=== PATIENT | female | born 1985 | race Caucasian/White ===

== ENCOUNTER 2021-06-06 10:39 | Emergency (ER) | payer SELFPAY ==
[2021-06-06 10:44] VITALS: BP 159/96; PULSE 75; RESP 18; TEMP 36.8; O2SAT 98; BMI 26.5
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
[2021-06-06 13:40] VITALS: BP 141/82; PULSE 78; RESP 18; TEMP 36.8; O2SAT 99
[2021-06-06 13:53] LABS: Chloride 107 mmol/L (98-107); Potassium 3.9 mmoL/L (3.5-5.1); Sodium 132 mmol/L (136-145)
[2021-06-06 13:56] LABS: Alanine Aminotransferase 12 U/L (12-78); Albumin Level 3.9 g/dl (3.5-5.0); Albumin/Globulin Ratio 1.3 (1.1-1.8); Alkaline Phosphatase 74 U/L (38-126); Anion Gap 5.9 mEq/L (5-15); Aspartate Amino Transferase 41 U/L (14-36); Bilirubin,Total 0.4 mg/dl (0.2-1.3); Blood Urea Nitrogen 4 mg/dl (7-17); Calcium 8.2 mg/dl (8.4-10.2); Carbon Dioxide 23 mmol/L (22.0-30.0); Creatinine Clearance Estimated 167 mL/min (50-200); Estimated Glomerular Filt Rate 140 ml/min (>60); GFR (African American) 169 ML/MIN (>60); Globulin 3.1 g/dL (1.3-3.2); Glucose 107 mg/dl (74-100); Lipase 75 U/L (23-300)
[2021-06-06 13:59] LABS: Basophils % 0.4 % (0.1-2.0); Eosinophils % 0.3 % (0.1-12.0); Hematocrit 38.7 % (37.0-47.0); Lymphocytes # 0.5 K/mm3 (0.7-4.5); Lymphocytes % 6.7 % (10-50); Mean Corpuscular HGB Conc 33.5 g/dL (31.8-35.4); Mean Corpuscular Hemoglobin 30.7 pg (27.0-31.2); Mean Corpuscular Volume 91.5 fl (81-99); Mean Platelet Volume 9.4 fl (7.4-10.4); Monocytes # 0.6 K/mm3 (0.1-1.0); Monocytes % 7.9 % (1.7-9.3); Neutrophils # 6.4 K/mm3 (1.8-7.8); Neutrophils % 84.7 % (37.0-80.0); Platelet Count 224 K/mm3 (142-424); Red Blood Count 4.23 M/mm3 (4.20-5.40); Red Cell Distribution Width 12.8 % (11.5-17.5); White Blood Count 7.6 K/mm3 (4.8-10.8)
== END 2021-06-06 13:42 | disposition critical access hospital (66) ==
PROVIDERS: Emergency Provider Emergency Medicine
DX: S22.081A Stable burst fracture of T11-T12 vertebra, initial encounter for closed fracture (principal); V47.0XXA Car driver injured in collision with fixed or stationary object in nontraffic accident, initial encounter; Y92.488 Other paved roadways as the place of occurrence of the external cause
CPT/HCPCS: 71045; 72125; 72128; 72131; 80053; 83690; 85025; 99283

== ENCOUNTER 2023-11-04 21:58 | Emergency (ER) | payer MEDICAID, SELFPAY ==
[2023-11-04 21:59] VITALS: BP 139/104; PULSE 114; RESP 20; TEMP 36.7; O2SAT 98; BMI 25.6
--- NOTE | 2023-11-04 22:30 | CT_ITS ---
PROCEDURE INFORMATION: Exam: CT Abdomen And Pelvis With Contrast Exam date and time: 11/04/2023 11:36 PM Age: 38 years old Clinical indication: Abdominal pain; Additional info: Left sided abdominal pain, hematochezia TECHNIQUE: Imaging protocol: Computed tomography of the abdomen and pelvis with contrast. Total images: 282 Radiation optimization: All CT scans at this facility use at least one of these dose optimization techniques: automated exposure control; mA and/or kV adjustment per patient size (includes targeted exams where dose is matched to clinical indication); or iterative reconstruction. Contrast material: ISOVUE; Contrast volume: 75 ml; Contrast route: IV; COMPARISON: CT LUMBAR SPINE WO CON 06/06/2021 11:09 AM FINDINGS: Lungs: Lung bases are clear. Heart: Normal heart size. Diaphragm: Tiny hiatal hernia. Liver: Dome of the liver has been excluded from field of view. Liver is otherwise unremarkable. Gallbladder and bile ducts: Normal. No calcified stones. No ductal dilation. Pancreas: Normal. No ductal dilation. Spleen: Normal. No splenomegaly. Adrenal glands: Normal. No mass. Kidneys and ureters: No hydronephrosis, nephrolithiasis, or renal mass. Stomach and bowel: Unremarkable stomach and duodenum. No ileus or bowel obstruction. Small bowel appears within normal limits. Unremarkable colon. Collapsed rectosigmoid colon. Appendix: Nonvisualized appendix. Suspect prior appendectomy with right lower quadrant surgical clips. Intraperitoneal space: Unremarkable. No free air. No significant fluid collection. Vasculature: Abdominal aorta is normal in caliber. Major abdominal vessels enhance appropriately. Pelvic phleboliths. Lymph nodes: Unremarkable. No enlarged lymph nodes. Urinary bladder: Unremarkable as visualized. Reproductive: Physiologic uterus and ovaries. No adnexal mass. Cervical nabothian cyst. Bones/joints: Remote severe compression deformity T12 vertebral body with component of retropulsion and acquired spinal canal stenosis. Minor broad-based thoracolumbar levocurvature is likely positional. No acute osseous abnormality. Soft tissues: Diastasis of the rectus fascia the umbilicus. IMPRESSION: 1. No acute intra-abdominal or pelvic process. 2. Multiple chronic and incidental findings.
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
[2023-11-04] MEDS: LACTATED RINGERS 1000ML 1,000 ML 999 ML IV (22:36)
[2023-11-04] MEDS: MORPHINE 4MG/ML SYRINGE 4 MG IV (22:37)
[2023-11-04] MEDS: ONDANSETRON 4MG/2ML VIAL 4 MG IV (22:37)
[2023-11-04 23:23] LABS: Chloride 103 mmol/L (98-107); Sodium 139 mmol/L (136-145)
[2023-11-04 23:24] LABS: Basophils # 0.1 K/mm3 (0-0.2); Basophils % 0.8 % (0.1-2.0); Eosinophils # 0.1 K/mm3 (0.0-0.4); Eosinophils % 1.5 % (0.1-12.0); Hematocrit 45.8 % (37.0-47.0); Hemoglobin 15.2 g/dL (12.2-16.2); Lymphocytes # 2.1 K/mm3 (0.7-4.5); Lymphocytes % 21.6 % (10-50); Mean Corpuscular HGB Conc 33.2 g/dL (31.8-35.4); Mean Corpuscular Hemoglobin 30.1 pg (27.0-31.2); Mean Corpuscular Volume 90.5 fl (81-99); Mean Platelet Volume 8.4 fl (7.4-10.4); Monocytes # 0.5 K/mm3 (0.1-1.0); Monocytes % 4.8 % (1.7-9.3); Neutrophils # 6.8 K/mm3 (1.8-7.8); Neutrophils % 71.3 % (37.0-80.0); Platelet Count 340 K/mm3 (142-424); Red Blood Count 5.07 M/mm3 (4.20-5.40); White Blood Count 9.6 K/mm3 (4.8-10.8)
[2023-11-04 23:26] LABS: Alanine Aminotransferase 16 U/L (12-78); Albumin Level 4.9 g/dl (3.5-5.0); Albumin/Globulin Ratio 1.3 (1.1-1.8); Alkaline Phosphatase 83 U/L (38-126); Aspartate Amino Transferase 27 U/L (14-36); Bilirubin,Total 0.3 mg/dl (0.2-1.3); Blood Urea Nitrogen 12 mg/dl (7-17); Calcium 10.1 mg/dl (8.4-10.2); Carbon Dioxide 27 mmol/L (22.0-30.0); Creatinine Clearance Estimated 76 mL/min (50-200); Estimated Glomerular Filt Rate 62 ml/min (>60); GFR (African American) 75 ML/MIN (>60); Globulin 3.7 g/dL (1.3-3.2); Glucose 103 mg/dl (74-100); Lactic Acid 1.1 mmol/L (0.7-2.1); Lipase 110 U/L (23-300); Total Protein,Serum 8.6 g/dl (6.3-8.2)
[2023-11-04 23:27] LABS: HCG Qualitative, Serum Negative (Negative)
[2023-11-04] MEDS: IOPAMIDOL-370 (76%);100ML BOTTLE 75 ML IV (23:41)
[2023-11-04] MEDS: SODIUM CHLORIDE 0.9% 10ML SYR (RAD ONLY) 10 ML IV (23:41)
[2023-11-05 00:12] LABS: C-Reactive Protein 2.5 mg/L (0-4)
--- NOTE | 2023-11-05 00:21 | PC.NURSE ---
Patient ambulated to restroom. No acute distress noted. Patient reports that her pain has improved to 1/10 at this time.
[2023-11-05 00:25] LABS: Microscopic, Urine URINE MICROSCOPIC (MICROSCOPIC)
[2023-11-05 01:07] LABS: Erythrocyte Sedimentation Rate 14 mm/hr (0-20)
[2023-11-05 01:10] LABS: Appearance,Urine CLEAR (Clear); Bilirubin,Urine Negative (Negative); Blood, Urine Negative (Negative); Color,Urine YELLOW (Yellow); Glucose,Urine (UA) Negative (Negative); Ketones,Urine Negative (Negative); Leukocyte Esterase,Urine Negative (Negative); Nitrate,Urine Negative (Negative); Protein,Urine Negative (Negative); Urobilinogen,Urine 0.2 EU/dl (0.2)
[2023-11-05 01:14] LABS: Bacteria,Urine Trace /lpf; WBC,Urine Occasional #/hpf (0-3)
[2023-11-05 01:26] VITALS: BP 124/98; PULSE 100; RESP 20; TEMP 36.8; O2SAT 99
== END 2023-11-05 01:29 | disposition home or self-care (01) ==
PROVIDERS: Student in an Organized Health Care Education/Training Program; Emergency Provider Emergency Medicine
DX: R10.12 Left upper quadrant pain (principal); R10.32 Left lower quadrant pain; K92.0 Hematemesis; F17.210 Nicotine dependence, cigarettes, uncomplicated
CPT/HCPCS: 74177; 80053; 81001; 83605; 83690; 84703; 85025; 85651; 86140; 96361; 96374; 96375; 99285; J2270; J2405; J7120; Q9967

== ENCOUNTER 2025-01-18 08:52 | Emergency (ER) | payer MEDICAID, SELFPAY ==
--- OUTSIDE RECORDS SUMMARY | 2025-01-12 20:25 | XMS_ITS | Encounter Summary ---
Author Organization [place] [address] Care Team Providers Care Concrete Smoother Name Role Phone Nonstaff, Referring Primary Care Provider Minerva garces Reason for Visit * Reason Comments Fall states she was walki ng backward and tripped over a puppy. Left wrist injury - states she can move her fingers but not her wrist. + swelling. States she has multiple abrasions from fall I dont think my tetanus is up to date Encounter Details Date Type Department Care Team (Late st Contact Info) Description 2025 8:25 PM EDT - 2025 9:18 PM EDT [facility] [address] [place] [address] Zhane Gao MD [address] [place] [id number] Closed fracture of distal end of left radius, unspecified fracture morphology, initial encounter (Primary Dx) Discharge Disposition: Home or Self Care Social History Tobacco Use Types Packs/Day Years Used Date Smoking Tobacco: Never Smokeless Tobacco: Never Alcohol Use Standard Drinks/Week Comments Not Currently 0 (1 standard drink = 0.6 oz pur e alcohol) Comments No Sex and Gender Information Value Date Recorded Sex Assigned at Not on file Legal Sex Female 5:17 PM EDT Gender Identity Not on file Sexual Orientation Not on file documented as of this encounter Last Filed Vital Signs Vital Sign Reading Time Taken Comments Blood Pressure 128/85 2025 8:25 PM EDT Pulse 113 2025 8:09 PM EDT Temperature 36.6 C (97.9 F) 2025 8:25 PM EDT Respiratory Rate 20 2025 8:09 PM EDT Oxygen Saturation 100% 2025 8:09 PM EDT Inhaled Oxygen Concentration - - Weight 61.2 kg (135 lb) 2025 8:08 PM EDT Height 158.8 cm (5' 2.5 ) 2025 8:08 PM EDT Body Mass Index 24.3 2025 8:08 PM EDT documented in this encounter Functional Status * Suicide Severity Rating Answer Date of Assessment Author No Risk 2025 8:10 PM EDT Leigh Ann Dailey RN * [place] Suicide Severity Rating Scale (Q shift for moderate and high) Question Answer Date of Assessment Author 1. In the past month, have you wished you were or wished you could go to sleep and not wake up? 0 2025 8:10 PM EDT Leigh Ann Dailey RN 2. In the past month, have you actually had any thoughts of killing yourself? (If no, skip to question 6) 0 2025 8:10 PM EDT Leigh Ann Dailey RN 6. Have you ever done anything, started to do anything, or prepared to do anything to end your life? 0 2025 8:10 PM EDT Dina Dailey RN documented as of this encounter Discharge Instructions * Discharge Instructions* Toni Maciel APRN - 2025 8:56 PM EDT Discharge instructions Take all your medications as directed. Keep your splint clean and dry. Rest and elevate the extremity as much as possible over the next 48-72 hours. Apply ice cold compress to the area for 20 minutes every 2 hours as needed to help with pain and swelling. Follow-up with orthopedic surgery as discussed and instructed above for splint removal and further evaluation. Return to the emergency department for any severe uncontrolled pain, numbness or tingling or severeswelling past the splint or for any other new or worsening concerns. * Attachments The following attachments cannot be sent through Care Everywhere. * Forearm and Wrist Fractures ED ([place]) documented in this encounter Medications at Time of Discharge ibuprofen (ADVIL;MOTRIN) 600 mg Oral Tablet Take 1 Tablet by mouth every 8 hours as needed for Pain for up to 30 days. 30 Tablet 2025 02/11/2025 sulfamethoxazole- trimethoprim (BACTRIM DS) 800-160 mg Oral Tablet Take 1 Tablet by mouth 2 times daily. 14 Tablet 07/29/2023 oxyCODONE-acetami nophen (PERCOCET) 5-325 mg Oral Tablet Take 1 Tablet by mouth every 6 hours as needed for Acute Pain (R52) for up to 3 days. 6 Tablet 2025 01/15/2025 documented as of this encounter Ordered Prescriptions Prescription Sig Dispense Quantity Refills Last Filled Start Date End Date ibuprofen (ADVIL;MOTRIN) 600 mg Oral Tablet Take 1 Tablet by mouth every 8 hours as needed for Pain for up to 30 days. 30 Tablet 2025 02/11/2025 oxyCODONE-acetamin ophen (PERCOCET) 5-325 mg Oral Tablet Take 1 Tablet by mouth every 6 hours as needed for Acute Pain (R52) for up to 3 days. 6 Tablet 2025 01/15/2025 documented in this encounter Discharge Disposition Disposition Code Departure Means Destination Comment s Home or Self [facility] documented in this encounter ED Notes * Toni Maciel, CHASSIS WIRER - 2025 8:05 PM EDT CHIEF COMPLAINT Chief Complaint Patient presents with Fall states she was walking backward and tripped over a puppy. Left wrist injury - states she can move her fingers but not her wrist. + swelling. States she has multiple abrasions from fall I dont thinkmy tetanus is up to date Attending physician Dr Gao, Zhane Garay MD ED COURSE & MEDICAL DECISION MAKING Brigid Bella is a 40 y.o. female with a PMHx listed below presenting with left wrist injury after a fall on outstretched left hand. # Distal radius fracture (Acute) - Patient presents with nondisplaced distal radius fracture in the setting of mechanical fall. On exam she is well-appearing nontoxic afebrile hemodynamically stable GCS of 15 with no other trauma related complaints or injuries. No evidence of distal neurovascular compromise. Diffuse swelling and tenderness noted on exam below. Radiograph consistent with above-mentioned patient placed in sugar-tong splint on reassessment remains well-perfused and distally neurovascularly intact stable for outpatient follow-up with orthopedic surgery with referral provided at discharge. - History obtained by patient as well as chart review. - Pertinent Labs & Imaging studies reviewed. (See chart for ordered tests and details). ED COURSE - Consultants: None - Social Determinants of Health: Noncontributory - Care of patient discussed with nursing team and nursing documentation reviewed. Medications Administered Medications oxyCODONE-acetaminophen (PERCOCET) 5-325 mg per tablet 1 Tablet (1 Tablet Oral Given 01/12/252050) Prescriptions Written ED Current Prescriptions Medication Dispense Auth. Provider oxyCODONE-acetaminophen (PERCOCET) 5-325 mg Oral Tablet 6 Tablet Toni Maciel APRN ibuprofen (ADVIL;MOTRIN) 600 mg Oral Tablet 30 Tablet Toni Maciel APRN Future Appointments No future appointments. FINAL IMPRESSION 1. Closed fracture of distal end of left radius, unspecified fracture morphology, initial encounter HPI Brigid Bella is a 40 y.o. female presenting with left wrist injury. Patient reports she was backing up and fell backwards onto an outstretched left wrist after she tripped over a puppy . She did not hit her head or lose consciousness but heard a pop in her wrist report significant pain and swelling since. She denies any other trauma related injuries or complaints. REVIEW OF SYSTEMS A complete review of systems is negative except as noted in the HPI. PAST MEDICAL HISTORY History reviewed. No pertinent past medical history. FAMILY HISTORY No family history on file. SOCIAL HISTORY Social History Socioeconomic History Marital status: Spouse name: None Number of children: None Years of education: None Highest education level: None Tobacco Use Smoking status: Never Smokeless tobacco: Never Vaping Use Vaping status: Some Days Substance and Sexual Activity Alcohol use: Not Currently Drug use: Not Currently SURGICAL HISTORY History reviewed. No pertinent surgical history. CURRENT MEDICATIONS No current facility-administered medications on file prior to encounter. Current Outpatient Medications on File Prior to Encounter Medication Sig Dispense Refill sulfamethoxazole-trimethoprim (BACTRIM DS) 800-160 mg Oral Tablet Take 1 Tablet by mouth 2 times daily. (Patient not taking: Reported on 2025) 14 Tablet 0 ALLERGIES No Known Allergies PHYSICAL EXAM VITAL SIGNS: ED Triage Vitals Temp 01/12/252024 97.9 ??F (36.6 ??C) Pulse 01/12/252008 113 Resp 01/12/252007 20 BP 01/12/252024 (!) 128/85 SpO2 01/12/252008 100 % Height 01/12/252007 5' 2.5 (1.588 m) Weight 01/12/252007 135 lb (61.2 kg) Constitutional: Appears nontoxic. No acute distress. HENT: Atraumatic. Normocephalic. Eyes: Conjunctiva normal. EOMI Neck: ROM normal, supple. Cardiovascular: Regular rate and regular rhythm. Extremities appear warm and well perfused. Thorax & Lungs: Respiratory effort normal. Abdomen: Nondistended. Nontender. Musculoskeletal: Moves all 4 extremities spontaneously with apparent equal strength. Obvious swelling and diffuse tenderness over the left wrist without obvious bony deformity or focal tenderness. Palpable radial ulnar pulses. Normal finger cascade. Brisk capillary refill. Intact radial median ulnar nerve sensation. Good treating machine operator strength bilaterally. Skin: Warm and dry. Neurologic: Awake and alert. GCS of 15. LABS/RADIOLOGY Reviewed (See Orders) Results for orders placed or performed during the hospital encounter of 01/12/25 XR WRIST LEFT PA LATERAL AND OBLIQUE Narrative XR WRIST LEFT PA LATERAL AND OBLIQUE, 2025 8:42 PM CLINICAL HISTORY: -FOOSH COMPARISON: None. PROCEDURE COMMENTS: 4 views of the wrist, with PA, lateral, and bilateral oblique imaging. FINDINGS: Possible distal radial nondisplaced acute fracture. The remaining bones are grossly intact. Mild soft tissue swelling Joint spaces overall well-maintained for age. No periostitis. Impression Possible distal radial nondisplaced acute fracture. - Note: Radiology results need to be interpreted within a comprehensive clinical context. If you have questions about the radiology report, please contact the office of the ordering clinician. XR WRIST LEFT PA LATERAL AND OBLIQUE Final Result Possible distal radial nondisplaced acute fracture. - Note: Radiology results need to be interpreted within a comprehensive clinical context. If you have questions about the radiology report, please contact the office of the ordering clinician. Abnormal Labs Reviewed - No data to display EKG PROCEDURES/ULTRASOUND DISPOSITION Risks, benefits, and alternatives were discussed. At this time the patient has been deemed safe fordischarge. My customary discharge instructions including strict return precautions for worsening ornew symptoms have been communicated. CRITICAL CARE Condition at Discharge/Transfer from Department/Shift Turnover: Improved In cases where narcotics are prescribed, DARI report was obtained, reviewed, and made part of record. After examining available information, and risks of prescribing or dispensing controlled substances was explained to the patient (including non-treatment or other treatment), it is considered medically appropriate to administer narcotics as prescribed. This note was dictated using voice-recognition software, which occasionally construes inadvertent typographic errors. Toni Maciel APRN 01/12/252126 Cosigned by Zhane Gao MD at 2025 11:58 PM EDT Associated attestation - Zhane Gao MD - 2025 11:58 PM EDT I have reviewed the chief complaint, history of the present illness, review of systems as well as the past medical, social, and family history sections for this patient. I participated in the care ofthis patient with the PA/PV DESIGN AND INSTALLATION TECHNICIAN. We discussed the management plan and testing results for this patient and I performed a substantiative portion of the medical decision making. No orders to display This chart was completed using voice recognition technology and may contain unintended errors documented in this encounter Plan of Treatment Upcoming Encounters Date Type Department Care Team (Late st Contact Info) Description 01/18/2025 1:15 PM EDT Office [address] [facility] [address] [address] Myke Ramirez APRN [address] [place] [phone] documented as of this encounter Procedures Procedure Name Priority Date/Time Associated Diagnosis Comments XR WRIST LEFT PA LATERAL AND OBLIQUE PHILLIP 2025 8:42 PM EDT documented in this encounter Results * XR WRIST LEFT PA LATERAL AND OBLIQUE (2025 8:42 PM EDT) Anatomical Region Laterality Modality Wrist Radiographic Demetria ging 2025 8:42 PM EDT Impressions 2025 8:49 PM EDT Possible distal radial nondisplaced acute fracture. - Note: Radiology results need to be interpreted within a comprehensive clinical context. If you have questions about the radiology report, please contact the office of the ordering clinician. Narrative 2025 8:49 PM EDT XR WRIST LEFT PA LATERAL AND OBLIQUE, 2025 8:42 PM CLINICAL HISTORY: -FOOSH COMPARISON: None. PROCEDURE COMMENTS: 4 views of the wrist, with PA, lateral, and bilateral oblique imaging. FINDINGS: Possible distal radial nondisplaced acute fracture. The remaining bones are grossly intact. Mild soft tissue swelling Joint spaces overall well-maintained for age. No periostitis. Procedure Note Ralph Phoenix MD - 2025 XR WRIST LEFT PA LATERAL AND OBLIQUE, 2025 8:42 PM CLINICAL HISTORY: -FOOSH COMPARISON: None. PROCEDURE COMMENTS: 4 views of the wrist, with PA, lateral, andbilateral oblique imaging. FINDINGS: Possible distal radial nondisplaced acute fracture. Theremaining bones are grossly intact. Mild soft tissue swelling Joint spaces overall well-maintained for age. No periostitis. IMPRESSION: Possible distal radial nondisplaced acute fracture. - Note: Radiology results need to be interpreted within a comprehensiveclinical context. If you have questions about the radiology report, please contactthe office of the ordering clinician. Toni Maciel CHASSIS WIRER IMG DIAGNOSTIC IMAGING O RDERABLES Final Result documented in this encounter Visit Diagnoses Diagnosis Closed fracture of distal end of left radius, unspecified fracture morphology, initial encounter- Primary documented in this encounter Administered Medications Inactive Administered Medications - up to 1 most recent administrations Medication Order MAR Action Action Date Dose Rate Site oxyCODONE-acetaminophen (PERCOCET) 5-325 mg per tablet 1 Tablet 1 Tablet, Oral, ONCE, 1 dose, On Fri01/12/25 at 2044, *Maximum adult dose of acetaminophen is 4000 mg from all sources in 24 hours.* Given 2025 8:51 PM EDT 1 Tablet documented in this encounter Active and Recently Administered Medications Times are shown in EDT. Scheduled Medication Order 01/10/2025 01/11/2025 2025 oxyCODONE-acetaminophen (PERCOCET) 5-325 mg per tablet 1 Tablet (COMPLETED) 1 Tablet, Oral, ONCE, 1 dose, On Fri01/12/25 at 2044, *Maximum adult dose of acetaminophen is 4000 mg from all sources in 24 hours.* 2050 (Given - Provid er: Brenda Ortiz RN) documented in this encounter Orders Medications Ordered That Adalberto ht Not Have Been Administered Count Last Ordered Date First Ordered Date oxyCODONE-acetaminophen (PER COCET) 5-325 mg per tablet 1 Tablet 1 2025 Nursing Count Last Ordered Date First Orde red Date SPLINT, CUSTOM 1 2025 documented in this encounter Care Teams Concrete Smoother Relationship Specialty Start Date End Date Nonstaff, Referring PCP - General 07/29/23 documented as of this encounter
--- NOTE | 2025-01-18 08:56 | ECG_ITS ---
APPROVED REPORT Exam: Resting ECG HR:101 bpm ECG Measurements Heart Rate 101 AXES MT 158 P 58 QRSd 84 QRS 45 QT 360 T 41 QTc 418 Conclusion SINUS TACHYCARDIA POSSIBLE RIGHT VENTRICULAR CONDUCTION DELAY [RSR (QR) IN V1/V2] ABNORMAL RHYTHM ECG UNCONFIRMED REPORT Electronically signed by : Antonio Frazier, 01/20/2025 15:31:12
[2025-01-18 08:57] VITALS: BP 160/124; PULSE 98; RESP 18; TEMP 36.6; O2SAT 99; BMI 24.7
[2025-01-18 09:06] VITALS: BP 160/124; PULSE 98; RESP 18; TEMP 36.6; O2SAT 99
--- OUTSIDE RECORDS SUMMARY | 2025-01-18 09:19 | XMS_ITS | Clinical Summary ---
Author Organization [facility] Address [address] [place] [address] Phone Care Team Providers Care Sluice Tender Name Role Phone Nonstaff, Referring Primary Care Provider Unavai lable Allergies No known active allergies Medications sulfamethoxazol e-trimethoprim (BACTRIM DS) 800-160 mg Oral Tablet Take 1 Tablet by mouth 2 times daily. 14 Tablet 4 Active Additional Information Patient not taking.Reported on 2025 ibuprofen (ADVIL;MOTRIN) 600 mg Oral Tablet Take 1 Tablet by mouth every 8 hours as needed for Pain for up to 30 days. 30 Tablet 5 02/12/20 25 Active oxyCODONE-aceta minophen (PERCOCET) 5-325 mg Oral Tablet Take 1 Tablet by mouth every 6 hours as needed for Acute Pain (R52) for up to 3 days. 6 Tablet 5 01/16/20 25 Encounters Date Type Department Care Team Description 01/13/2025 Telephone [facility] [address] [phone] Osorio Jacques MD Schedule Appointment (No show, can't leave the message.) 2025 8:25 PM EDT - 2025 9:18 PM EDT Emergency [facility] [address] [facility] [place] [address] Zhane Gao MD Closed fracture of distal end of left radius, unspecified fracture morphology, initial encounter (Primary Dx) Discharge Disposition: Home or Self Care 2025 Travel from Last 3 Months Social History Tobacco Use Types Packs/Day Years Used Date Smoking Tobacco: Never Smokeless Tobacco: Never Alcohol Use Standard Drinks/Week Comments Not Currently 0 (1 standard drink = 0.6 oz pur e alcohol) Comments No Sex and Gender Information Value Date Recorded Sex Assigned at Not on file Legal Sex Female 5:17 PM EDT Gender Identity Not on file Sexual Orientation Not on file Obstetrics History Last Filed Vital Signs Vital Sign Reading [...] Mass Index 24.3 2025 8:08 PM EDT Plan of Treatment Upcoming Encounters Date Type Department Care Team (Late st Contact Info) Description 01/18/2025 1:15 PM EDT Office Visit Lorene Babcock [address] [place] [address] Myke Ramirez, ETHAN [address] [place], [place] [phone] Health Maintenance Due Date Last Done Comments Annual Wellness Exam 01/13/1988 DTaP/TDaP/Td (1 - Tdap) 01/13/2004 Cervical Cancer Screening 2006 Pap Smear 2006 HPV/Pap Cotest 2015 Hepatitis B Vaccine (3 of 3 - 19+ 3-dose series) 03/31/2019 10/30/2018, 09/28/2018 Breast Cancer Screening 2025 COVID-19 Vaccine (1 - 2023-2 5 season) 2025 Influenza Vaccine (#1) 2025 Meningococcal B Vaccine Aged Out No l onger eligible based on patient's age to complete this topic Pneumococcal Vaccine 0-49 Aged Out No longer eligible based on patient's age to complete this topic Procedures Procedure Name Priority Date/Time Associated Diagnosis Comments XR WRIST LEFT PA LATERAL AND OBLIQUE PHILLIP 2025 8:42 PM EDT from Last 3 Months Results * XR WRIST LEFT PA LATERAL [...] IMG DIAGNOSTIC IMAGING O RDERABLES Final Result from Last 3 Months Insurance [facility] Care Teams Sluice Tender Relationship Specialty Start Date End Date Nonstaff, Referring PCP - General 07/29/23
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
--- OUTSIDE RECORDS SUMMARY | 2025-01-18 09:20 | XMS_ITS | Encounter Summary ---
Author Organization [facility] [place] [address] Care Team Providers Care Java Programmer Analyst Name Role Phone Nonstaff, Referring Primary Care Provider Minerva garces Encounter Details Date Type Department Care Team (Latest Contact Info) Description 2025 Travel Social History Tobacco Use Types Packs/Day Years [...] on file documented as of this encounter Functional Status * Suicide Severity Rating Answer Date of Assessment Author No Risk 2025 8:10 PM EDT Leigh Ann Dailey RN * [place] Suicide Severity Rating Scale (Q shift for [...] Dailey RN documented as of this encounter Plan of Treatment Upcoming Encounters Date Type Department Care Team (Late st Contact Info) Description 01/18/2025 1:15 PM EDT Office Visit Lorene Babcock [address] [place] [phone] Myke Ramirez, ETHAN [address] [place], [place] [phone] documented as of this encounter Visit Diagnoses Not on filedocumented in this encounter Care Teams Java Programmer Analyst Relationship Specialty Start Date End Date Nonstaff, Referring PCP - General 07/29/23 documented as of this encounter
--- OUTSIDE RECORDS SUMMARY | 2025-01-18 09:20 | XMS_ITS | Encounter Summary ---
Author Organization [facility] Address [address] [place] [address] Care Team Providers Care Tool Carrier Name Role Phone Nonstaff, Referring Primary Care Provider Minerva garces Reason for Visit * Reason Onset Date Comments Schedule Appointment 01/13/2025 No show, ca n't leave the message. Encounter Details Date Type Department Care Team (Late Contact Info) Description 01/13/2025 Telephone [facility] [address] [phone] Osorio Jacques MD [address] [place] [address] Schedule Appointment (No show, can't leave the message.) Social History Tobacco Use Types Packs/Day Years [...] on file documented as of this encounter Miscellaneous Notes * Telephone Encounter - Katlin Pickens - 01/13/2025 4:30 PM EDT no show, can't leave the message documented in this encounter Plan of Treatment Upcoming Encounters Date Type Department Care Team (Late Contact Info) Description 01/18/2025 1:15 PM EDT Office Visit [facility] [address] [place] [address] Myke Ramirez APRN [address] [place] [address] documented as of this encounter Visit Diagnoses Not on filedocumented in this encounter Care Teams Tool Carrier Relationship Specialty Start Date End Date Nonstaff, Referring PCP - General 07/29/23 documented as of this encounter
--- NOTE | 2025-01-18 09:38 | HMH.EDGENADL ---
Discharge Plan Disposition Patient Disposition: Home, Self-Care Prescriptions Prescriptions: No Action No Known Home Medications Referrals Follow up/Referrals: Toni Tapia DO [Staff Physician, Family Practice] - See instructions Provider,Referral, [Primary Care Provider, Medical] - See instructions Activity Restrictions/Add. Instructions Additional Instructions/Restrictions: As discussed you have no evidence of any endorgan damage from your high blood pressure please keep a log morning afternoon and night for the next week and follow-up with Dr. Tapia as soon as possible to discuss management if you continue to have high blood pressure readings at home. Return with any chest pain shortness of breath neurologic symptoms decrease in urine output or other concerns. Clinical Impressions Clinical Impression: Asymptomatic hypertension Print Language Print Language: Kazakh Discharge ED Provider: Zheng Frazier General Adult HPI General Chief complaint: PAIN Stated complaint: chest pain Time Seen by Provider: 01/18/25 09:32 Mode of Arrival: Ambulatory Source of Information: Patient Description of Symptoms (Recalled from ER Triage Doc. by RN): pt presents to the ED with pressure behind both ears, chest tightness, cloudy vision, neck stiffiness, and dizziness that has been going on for the past 2 days. pt reports that the chest tightness gets worse when she is sitting. pt has broke her back in the past believes that might be causing her chest tightness. pt reports that she checked her BP at home with multiple readings of 219/175. Pt currently has a left broken arm from tripping over a dog. Denies hitting her head or neck. Denies abdominal pain. History of Present Illness HPI narrative: Patient is a 4-year-old female presenting today at the moment primarily concerned about her high blood pressure. She states that she had some symptoms yesterday such as pressure in her ears and left-sided neck discomfort. She denies having any chest pain to me or any neurologic symptoms and she at the moment is completely without any symptoms. She took a blood pressure reading which was 219/175 she has never had high blood pressure in the past. This is what brought her to the emergency department. She has no primary care doctor and she is new to our region. States that recently she was in the ER for a fracture of her upper extremity and her blood pressure was normal at that time. Related Data Home Medications ?Medication ?Instructions ?Recorded ?Confirmed No Known Home Medications 06/06/21 06/06/21 Allergies Allergy/AdvReac Type Severity Reaction Status Date / Time No Known Allergies Allergy Verified 06/06/21 10:51 [facility] Disclaimer: The information contained in this section may have been updated after the patient was seen, as this information can be updated by other users. Social History Smoking Status: Current every day smoker alcohol intake: never current occupational status: other Travel in the last 8 weeks?: None Have you lived/traveled outside US in past 30 days?: No Contact w/someone who lives/traveled outside US past 30 days?: No Exposure to someone with infectious disease in past 14 days?: No Do you have a fever (greater than 100.4 F or 38 C)?: No Have you tested positive for COVID-19?: No Exposed to someone with COVID-19 in past 14 days?: No Do you have a sore throat?: No Do you have a cough?: No Do you have any weakness?: No Do you have any diarrhea?: No Are you experiencing any unusual bleeding?: No Do you have any muscle aches/pain?: No Do you have any abdominal pain?: No Are you experiencing loss of taste or smell?: No Other Medical History Have you received the Flu Vaccine for this season: No Have you received the Pneumonia Vaccine: No ROS Obtained: Yes All systems reviewed & no additional complaints except as documented Physical Exam General General appearance: alert Respiratory Respiratory exam: Present normal lung sounds bilaterally Cardiovascular Cardiovascular exam: Present regular rate Neurological Exam Neurological exam: Present alert and oriented X3 Medical Decision Making Medical Records Screening: Per USPSTF and CDC recommendations, given the prevalence of disease in our region, it is our hospital?s policy to screen for HIV and viral Hepatitis for all patients aged 18 and over and those with ongoing risk factors. Amadeo Inquiry Pt receiving controlled substance: No Vital Signs: 01/18/25 08:57 01/18/25 09:06 Temperature 97.8 F 97.8 F Temperature Source Oral Oral Pulse Rate 98 H Pulse Rate [Right] 98 H Respiratory Rate 18 18 Blood Pressure 160/124 H Blood Pressure [Right Arm] 160/124 H Blood Pressure Mean [Right Arm] 136 Blood Pressure Source Automatic Cuff Blood Pressure Source [Right Arm] Automatic Cuff Blood Pressure Position Supine Blood Pressure Position [Right Arm] Supine 02 Sat by Pulse Oximetry 99 99 Oxygen Delivery Method Room Air Room Air Orders (Tests/Meds): ORDERS Category Date Time Status HIV Combo Stat Lab 01/18/25 09:10 Received Hepatitis C Ab Qual. W/ RFX Stat Lab 01/18/25 09:10 Received Medical Decision Narrative: 40-year-old currently asymptomatic no evidence clinically of any endorgan damage from an emergency standpoint with hypertension. She appears to have had 2 measurements of elevated blood pressure and I offered to start her on blood pressure medication however I discussed with her that there are different preferences for first-line agents and that if she wanted more accurate measurements on whether or not she should be starting blood pressure medications that she should be taking a blood pressure log morning afternoon and night and follow-up with primary care doctor which she opted to do. We did not start her on any blood pressure medications no further emergency interventions or testing were necessary or performed patient was discharged in stable condition. Critical Care Critical Care Time Critical Care Time: No
[2025-01-18 09:42] VITALS: BP 151/112; PULSE 78; RESP 17; TEMP 36.7; O2SAT 98
[2025-01-18 10:34] LABS: Hepatitis C Ab Qual. W/ RFX REACTIVE (Negative)
== END 2025-01-18 09:44 | disposition home or self-care (01) ==
PROVIDERS: Emergency Provider Student in an Organized Health Care Education/Training Program
DX: R07.9 Chest pain, unspecified (principal); I10 Essential (primary) hypertension; F17.210 Nicotine dependence, cigarettes, uncomplicated
CPT/HCPCS: 86803; 87389; 87522; 93005; 99283

== ENCOUNTER 2025-01-24 15:49 | Outpatient (CLI) | payer MEDICAID, SELFPAY ==
--- OUTSIDE RECORDS SUMMARY | 2025-01-12 20:25 | XMS_ITS | Encounter Summary ---
Author Organization [place] [address] Care Team Providers Care Material Handling Warehouse Supervisor Name Role Phone Nonstaff, Referring Primary Care [...] 9:18 PM EDT [facility] [address] [facility] [place] [address] Zhane Gao MD [address] [place] [phone] Closed fracture of distal end of [...] PM EDT Leigh Ann Dailey RN * [place] Suicide Severity Rating Scale (Q shift for [...] Everywhere. * Forearm and Wrist Fractures ED ([place]) documented in this encounter Medications at Time [...] Means Destination Comment s Home or Self Alf documented in this encounter ED Notes * Toni Maciel, BOTTLING LINE OPERATOR - 2025 8:05 PM EDT CHIEF COMPLAINT [...] Intact radial median ulnar nerve sensation. Good drying rack changer strength bilaterally. Skin: Warm and dry. Neurologic: [...] in the care ofthis patient with the PA/LOCKSTITCH MACHINE OPERATOR. We discussed the management plan and testing results for this patient and I performed a substantiative portion of the medical decision making. No orders to display This chart was completed using voice recognition technology and may contain unintended errors documented in this encounter Plan of Treatment Not on file documented as of this encounter Procedures Procedure [...] office of the ordering clinician. Toni Maciel APRN IMG DIAGNOSTIC IMAGING O RDERABLES Final Result [...] 2025 documented in this encounter Care Teams Material Handling Warehouse Supervisor Relationship Specialty Start Date End Date Nonstaff, Referring PCP - General 07/29/23 documented as of this encounter
[2025-01-24 16:19] LABS: Microscopic, Urine URINE MICROSCOPIC (MICROSCOPIC)
[2025-01-24 16:50] LABS: INR 0.97 (0.9-1.1); Prothrombin Time 10.8 seconds (10.1-12.5)
[2025-01-24 16:57] LABS: Hematocrit 43.9 % (37.0-47.0); Hemoglobin 15.2 g/dL (12.2-16.2); Immature Granulocytes % 0.5 %; Mean Corpuscular HGB Conc 34.6 g/dL (31.8-35.4); Mean Corpuscular Hemoglobin 30.2 pg (27.0-31.2); Mean Corpuscular Volume 87.3 fl (81-99); Nucleated Red Blood Cells % 0 %; Platelet Count 420 K/mm3 (142-424); Red Blood Count 5.03 M/mm3 (4.20-5.40); Red Cell Distribution Width-SD 39.6 fL; White Blood Count 9.8 K/mm3 (4.8-10.8)
[2025-01-24 18:15] LABS: Albumin Level 4.9 g/dl (3.5-5.0); Chloride 102 mmol/L (98-107); Sodium 140 mmol/L (136-145)
[2025-01-24 18:16] LABS: Potassium 4.6 mmoL/L (3.5-5.1)
[2025-01-24 18:18] LABS: Alanine Aminotransferase 12 U/L (12-78); Albumin/Globulin Ratio 1.4 (1.1-1.8); Alkaline Phosphatase 102 U/L (38-126); Anion Gap 13.6 mEq/L (5-15); Aspartate Amino Transferase 26 U/L (14-36); Bilirubin,Total 0.6 mg/dl (0.2-1.3); Blood Urea Nitrogen 10 mg/dl (7-17); Calcium 10.1 mg/dl (8.4-10.2); Carbon Dioxide 29 mmol/L (22.0-30.0); Cholesterol 162 mg/dl (140-200); Creatinine,Serum 0.80 mg/dl (0.52-1.04); Estimated Glomerular Filt Rate 79 ml/min (>60); GFR (African American) 96 ML/MIN (>60); Globulin 3.4 g/dL (1.3-3.2); Glucose 93 mg/dl (74-100); Iron 104 ug/dL (37-170); Phosphorous 3.6 mg/dl (2.5-4.5); Total Protein,Serum 8.3 g/dl (6.3-8.2); Triglycerides 105 mg/dl (30-150)
[2025-01-24 18:19] LABS: HDL Cholesterol 55 mg/dl (40-60); Magnesium 2.0 mg/dl (1.6-2.3)
[2025-01-24 18:28] LABS: Total Iron Binding Capacity 318 ug/dL (265-497)
[2025-01-24 18:29] LABS: C-Reactive Protein 4.2 mg/L (0-4); HCG Qualitative, Serum Negative (Negative)
[2025-01-24 18:37] LABS: Free T4 (Free Thyroxine) 1.13 ng/dl (0.78-2.19)
[2025-01-24 18:39] LABS: 25-OH Vitamin D, Total 28.7 ng/mL (30-100)
[2025-01-24 18:49] LABS: Thyroid Stimulating Hormone 1.74 uIU/mL (0.465-4.68)
[2025-01-24 18:53] LABS: Ferritin 61.1 ng/ml (6.24-137)
[2025-01-24 19:13] LABS: Vitamin B12 374 pg/mL (239-931)
[2025-01-24 20:42] LABS: Bilirubin,Urine Negative (Negative); Color,Urine YELLOW (Yellow); Glucose,Urine (UA) Negative (Negative); Ketones,Urine Negative (Negative); Leukocyte Esterase,Urine Negative (Negative); PH,Urine 7.0 (5.0-8.5); Protein,Urine Negative (Negative); Specific Gravity, Urine 1.020 (1.005-1.030); Urobilinogen,Urine 0.2 EU/dl (0.2)
[2025-01-24 21:06] LABS: Bacteria,Urine 4+ /lpf
[2025-01-24 22:21] LABS: Hemoglobin A1C 5.7 % (4.0-6.0)
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
--- OUTSIDE RECORDS SUMMARY | 2025-01-25 10:54 | XMS_ITS | Encounter Summary ---
Author Organization [facility] Address [address] [place] [address] Care Team Providers Care Approver Name Role Phone Nonstaff, Referring Primary Care Provider Minerva garces Reason for Visit * Reason Onset Date Comments Schedule Appointment 01/13/2025 No show, ca n't leave the message. Encounter Details Date Type Department Care Team (Late st Contact Info) Description 01/13/2025 Telephone [facility] [address] [place] [address] Osorio Jacques MD [address] [place] [address] Schedule Appointment (No show, can't leave the [...] on file documented as of this encounter Visit Diagnoses Not on filedocumented in this encounter Care Teams Approver Relationship Specialty Start Date End Date Nonstaff, Referring PCP - General 07/29/23 documented as of this encounter
--- OUTSIDE RECORDS SUMMARY | 2025-01-25 10:54 | XMS_ITS | Encounter Summary ---
Author Organization [facility] Address [address] [place] [address] Care Team Providers Care Ornamental Iron Erector Name Role Phone Nonstaff, Referring Primary Care Provider Minerva garces Reason for Visit * Reason Onset Date Comments Missed Appointment 01/18/2025 Encounter Details Date Type Department Care Team (Late st Contact Info) Description 01/18/2025 Telephone [facility] [place] [phone] [place] [phone] Myke Ramirez APRN [address] [place] [address] Missed Appointment Social History Tobacco Use Types Packs/Day Years [...] encounter Miscellaneous Notes * Telephone Encounter - Dina Wilson - 01/18/2025 1:56 PM EDT LEFT VM TO CALL AND RESCHEDULE documented in this encounter Plan of Treatment Not on file documented as of this encounter Visit Diagnoses Not on filedocumented in this encounter Care Teams Ornamental Iron Erector Relationship Specialty Start Date End Date Nonstaff, Referring PCP - General 07/29/23 documented as of this encounter
--- OUTSIDE RECORDS SUMMARY | 2025-01-25 10:54 | XMS_ITS | Clinical Summary ---
Author Organization [facility] Address [address] [place] [address] Phone Care Team Providers Care Manager Agricultural Name Role Phone Nonstaff, Referring Primary Care [...] Encounters Date Type Department Care Team Description 01/18/2025 Telephone [facility] [address] [phone] Myke Ramirez APRN Missed Appointment 01/13/2025 Telephone [facility] [address] [phone] Osorio Jacques MD Schedule Appointment (No show, can't leave the message.) 2025 8:25 PM EDT - 2025 9:18 PM EDT [facility] [address] [place] [address] Zhane Gao MD Closed fracture [...] 2025 8:08 PM EDT Plan of Treatment Health Maintenance Due Date Last Done Comments Annual Wellness Exam 01/13/1988 DTaP/TDaP/Td (1 - Tdap) 01/13/2004 Cervical Cancer Screening 2006 Pap Smear 2006 HPV/Pap Cotest 2015 Hepatitis B Vaccine (3 of 3 - 19+ 3-dose series) 03/31/2019 10/30/2018, 09/28/2018 Breast Cancer Screening 2025 COVID-19 Vaccine ( - 2023-2 5 season) 2025 Influenza Vaccine [...] Final Result from Last 3 Months Insurance [facility] [employer] Care Teams Manager Agricultural Relationship Specialty Start Date End Date Nonstaff, Referring PCP - General 07/29/23
--- OUTSIDE RECORDS SUMMARY | 2025-01-25 10:54 | XMS_ITS | Encounter Summary ---
Author Organization [facility] [place] [address] Care Team Providers Care Typing Checker Name Role Phone Nonstaff, Referring Primary Care [...] PM EDT Leigh Ann Dailey RN * [place] Suicide Severity Rating Scale (Q shift for [...] as of this encounter Plan of Treatment Not on file documented as of this encounter Visit Diagnoses Not on filedocumented in this encounter Care Teams Typing Checker Relationship Specialty Start Date End Date Nonstaff, Referring PCP - General 07/29/23 documented as of this encounter
[2025-01-26 08:22] LABS: Hepatitis B Surface Antigen Negative (Negative)
[2025-01-26 12:42] LABS: Hep A Ab, Total Positive (Negative); Hep B Core Ab, Total Positive (Negative); Hep B Surface Ab, Qual Reactive (.)
== END 2025-01-24 23:59 | disposition home or self-care (01) ==
LOC: LAB.DROPOF 01-25 10:41
PROVIDERS: PCP Nurse Practitioner Family; Visit Provider Nurse Practitioner Family
DX: E55.9 Vitamin D deficiency, unspecified (principal); E53.8 Deficiency of other specified B group vitamins; I10 Essential (primary) hypertension; R76.8 Other specified abnormal immunological findings in serum; F19.10 Other psychoactive substance abuse, uncomplicated; L81.8 Other specified disorders of pigmentation; R20.2 Paresthesia of skin; Z13.220 Encounter for screening for lipoid disorders; F12.20 Cannabis dependence, uncomplicated; E11.9 Type 2 diabetes mellitus without complications; R53.83 Other fatigue; R41.3 Other amnesia; G47.33 Obstructive sleep apnea (adult) (pediatric)
CPT/HCPCS: 80053; 80061; 81001; 82306; 82607; 82728; 83036; 83540; 83550; 83735; 84100; 84439; 84443; 84703; 85025; 85610; 85651; 86140; 86704; 86706; 86708; 87086; 87088; 87186; 87340; 87522; 87902